=== PATIENT | male | born 1945 | race Two or more races ===

== ENCOUNTER 2021-07-12 10:57 | Outpatient (CLI) | payer OTHER | END 2021-07-12 23:59 | disposition home or self-care (01) | LOC: LAB 10:57 | PROVIDERS: ATTEND Physician Assistant | DX: Z01.812 Encounter for preprocedural laboratory examination (principal); Z20.822 Contact with and (suspected) exposure to COVID-19 | CPT/HCPCS: C9803; U0003 ==

== ENCOUNTER → 2021-07-19 | Outpatient (CLI) | payer OTHER ==
[~2021-07-19] MED LIST: BENA40TA8 PO; BUDE10.2 IH; CANA300T PO; FLUT16SP16; GABA-532 PO; GLIP10TA11 PO; LOVA40TA2 PO; METO-358 PO; MONT10TA22 PO; NIFE60TA73 PO; PANT40TA49 PO; SAXA5TAB PO; TERA2CAP4 PO; TRIA1TAB3 PO; TUDORZA PRESSAIR INH
== END | disposition home or self-care (01) ==
LOC: LAB 12:00
PROVIDERS: ATTEND Physician Assistant
DX: Z01.812 Encounter for preprocedural laboratory examination (principal); Z20.822 Contact with and (suspected) exposure to COVID-19
CPT/HCPCS: C9803; U0003

== ENCOUNTER 2021-07-24 05:14 | Inpatient (IN) | payer OTHER ==
[~2021-07-24] VITALS: Ht 170.2 cm; Wt 83.0 kg
[2021-07-24] MEDS ORDERED: POLYMYXIN B SULFATE 500,000 UNITS ONE (06:19)
[2021-07-24] MEDS ORDERED: BUPIVACAINE 0.25% 75 MG/30 ML VIAL ONE (06:20)
[2021-07-24] MEDS ORDERED: BUPIVACAINE MPF W/EPI 0.25% 30 ML VIAL ONE (06:20)
[2021-07-24] MEDS ORDERED: HYDROMORPHONE INJ 2 MG/ML DISP.SYRIN ONE (06:22)
[2021-07-24] MEDS ORDERED: ROCURONIUM BROMIDE 50 MG/5 ML ONE ×2 (06:22→07:21)
--- NOTE | 2021-07-24 06:35 | NUR ---
PT ARRIVED ON UNIT @ 0530. AOx4. ON RA AND TOLERATING WELL. NO SOB NOTED. NO S/SX OF RESPIRATORY DISTRESS NOTED. LEFT UNIT AT 0630 FOR PROCEDURE ON RIGHT SHOULDER.
[2021-07-24] MEDS ORDERED: TRANEXAMIC ACID 3,000 MG in SODIUM CHLORIDE IRRIG SOLUTION 70 ML IR ONE (07:00)
[2021-07-24] MEDS ORDERED: BUPIVACAINE 0.5 % PF 150 MG/30 ML VIAL ONE (08:14)
[2021-07-24] MEDS ORDERED: DOCUSATE SODIUM 250 MG CAPSULE PO PRN (09:30)
[2021-07-24] MEDS ORDERED: ZOLPIDEM TARTRATE 5 MG TABLET PO PRN (09:30)
[2021-07-24] MEDS ORDERED: SENNOSIDES 8.6 MG TABLET PO PRN (09:30)
[2021-07-24] MEDS ORDERED: HYDROCODONE/APAP 5/325MG TABLET PO PRN (09:30)
[2021-07-24] MEDS ORDERED: ONDANSETRON HCL/PF 4 MG/2 ML VIAL IVP PRN (09:30)
[2021-07-24] MEDS ORDERED: oxyCODONE IR immediate release 5 MG PO ONE (11:01)
[2021-07-24] MEDS ORDERED: MENTHOL/CETYLPYRD (CEPACOL) 1 LOZ LOZENGE PO ONE (11:13)
[2021-07-24] MEDS ORDERED: HYDROMORPHONE 1 MG/1 ML DISP.SYRIN IM/IV/SC PRN (11:30)
[2021-07-24] MEDS ORDERED: CLONIDINE HCL 0.1 MG TABLET PO PRN (11:30)
[2021-07-24] MEDS ORDERED: diphenhydrAMINE HCL 25 MG CAPSULE PO PRN (11:30)
[2021-07-24] MEDS ORDERED: oxyCODONE IR immediate release 5 MG PO PRN (11:30)
[2021-07-24] MEDS ORDERED: MENTHOL/CETYLPYRD (CEPACOL) 1 LOZ LOZENGE PO PRN (11:30)
[2021-07-24] MEDS ORDERED: MAG HYDROX/AL HYDROX/SIMETH 30 ML UDC PO PRN (11:30)
[2021-07-24 12:00] VITALS: BP 121/60
[2021-07-24] MEDS ORDERED: NIFE60TA73 PO (12:37)
[2021-07-24] MEDS ORDERED: CANA300T PO (12:37)
[2021-07-24] MEDS ORDERED: SAXA5TAB PO (12:37)
[2021-07-24] MEDS ORDERED: METO-358 PO (12:37)
[2021-07-24] MEDS ORDERED: FLUT16SP16 (12:37)
[2021-07-24] MEDS ORDERED: BENA40TA8 PO (12:37)
[2021-07-24] MEDS ORDERED: BUDE10.2 IH (12:37)
[2021-07-24] MEDS ORDERED: TUDORZA PRESSAIR INH (12:39)
[2021-07-24] MEDS ORDERED: MONT10TA22 PO (12:51)
[2021-07-24] MEDS ORDERED: GABA-532 PO (12:51)
[2021-07-24] MEDS ORDERED: LOVA40TA2 PO (12:51)
[2021-07-24] MEDS ORDERED: GLIP10TA11 PO (12:51)
[2021-07-24] MEDS ORDERED: PANT40TA49 PO (12:51)
[2021-07-24] MEDS ORDERED: TRIA1TAB3 PO (12:51)
[2021-07-24] MEDS ORDERED: TERA2CAP4 PO (12:51)
[2021-07-24] MEDS: GABAPENTIN 300 MG CAPSULE PO SCH ×2 (13:45→18:35)
[2021-07-24] MEDS: PANTOPRAZOLE 40 MG TABLET.DR PO SCH ×2 (13:45→21:19)
[2021-07-24] MEDS: oxyCODONE IR immediate release 5 MG PO PRN (16:06)
[2021-07-24] MEDS: ANCEF 1 GM/50 ML D5W IV SCH ×2 (16:14→23:35)
[2021-07-24 16:19] VITALS: BP 123/70
[2021-07-24] MEDS: glipiZIDE 10 MG TABLET PO SCH (18:29)
[2021-07-24] MEDS: DOCUSATE SODIUM 100 MG CAPSULE PO SCH (18:29)
[2021-07-24] MEDS: GABAPENTIN 100 MG CAPSULE PO SCH (18:29)
--- NOTE | 2021-07-24 19:15 | NUR ---
MS RN OPENING NOTES: RECEIVED PATIENT IN BED, AWAKE, EATING HIS DINNER. A/O X4. NO DISTRESS NOTED. CALL LIGHT WITHIN REACH. BED IN LOWEST AND LOCKED POSITION. WITH O2 AT 2L/MIN NASAL CANNULA. WITH RIGHT ARM SLING. WITH GOOD CMS ON THE RIGHT EXTREMITY. NO COMPLAIN OF PAIN.
--- NOTE | 2021-07-24 19:44 | NUR ---
RN NOTES RECEIVED PT FROM SURGERY , STABLE A/0 X 4 , ABLE TO MAKE NEEDS KNOWN, D/C FROM NPO AND DINNER ORDERED, ASSISTED IN CUTTING UP CHICKEN AND BROCCOLI HIS ARM WAS TOO WEAK TO DO SO, CALLED PHARMACY 3 DIFFERENT TIMES AT THIS TIME TO TRY TO GET THE ORDERS FOR PROCARDIA/NIFEDIPINE , FLUCOTISONE, AND CEPROCEL TO UNIT SO I CAN PROVIDE BEFORE ENDING SHIFT PHARM SAID THEY WOULD SEND THOSE RIGHT UP , I AM AWAITING, PT REPOSITIONED FOR COMFORT, VOIDED 3 X'S DURING SHIFT CLEAR YELLOW NORMAL NO FOUL ODOR, IV INTACT PATENT, CALL LIGHT IN REACH WHEELS LOCKED ON BED AND BED LOW TO FLOOR, WILL CONTINUE TO MONITOR.
[2021-07-24 20:00] VITALS: BP 120/60
[2021-07-24] MEDS: TERAZOSIN HCL 1 MG CAPSULE PO SCH (20:14)
[2021-07-24] MEDS: FLUTICASONE PROPIONATE 16 GM BOTTLE NS SCH (20:14)
[2021-07-24] MEDS: MONTELUKAST SODIUM (10MG) 10 MG TABLET PO SCH (21:19)
[2021-07-24] MEDS: NIFEdipine XL (30MG) 30 MG TAB PO SCH (21:20)
[2021-07-24] MEDS: IV D5/0.45 NACL 1,000 ML IV PRN (21:22)
[2021-07-24] MEDS: LORAZEPAM 1 MG TABLET PO PRN (23:46)
[2021-07-25] MEDS: IV D5/0.45 NACL 1,000 ML IV PRN (05:44)
--- NOTE | 2021-07-25 06:27 | NUR ---
TOLD RT TO INSTRUCT IS FOR THE PATIENT.
[2021-07-25] MEDS ORDERED: PANTOPRAZOLE 40 MG TABLET.DR PO SCH (07:30)
--- NOTE | 2021-07-25 07:30 | NUR ---
MS RN OPENING NOTES RECEIVED PATIENT IN BED, AWAKE, A&O X 4. WITH O2 VIA NC AT 2LPM TOLERATING WELL, NO S/SX OF ACUTE DISTRESS NOTED. NO COMPLAINTS OF PAIN AT THIS TIME. IV ACESS ON LEFT WRIST G#20 PATENT AND FLUSHES WELL. SAFETY PRECAUTIONS IN PLACE: BED ON LOWEST LOCKED POSITION, SIDE RAILS UP X 2, KEPT CALL LIGHT WITHIN EASY REACH. WILL CONTINUE TO MONITOR PATIENT ACCORDINGLY.
[2021-07-25] MEDS: glipiZIDE 10 MG TABLET PO SCH ×2 (08:20→16:03)
[2021-07-25] MEDS: ASPIRIN 325 MG TABLET PO SCH (08:20)
[2021-07-25] MEDS: DOCUSATE SODIUM 100 MG CAPSULE PO SCH ×2 (08:20→16:03)
[2021-07-25] MEDS: ATORVASTATIN 10 MG TABLET PO SCH (08:20)
[2021-07-25] MEDS: BENAZEPRIL HCL 20 MG TABLET PO SCH (08:21)
[2021-07-25] MEDS: GABAPENTIN 100 MG CAPSULE PO SCH ×3 (08:21→16:03)
[2021-07-25] MEDS: METOPROLOL SUCCINATE 50 MG TAB.SR.24H PO SCH (08:22)
[2021-07-25] MEDS: GABAPENTIN 300 MG CAPSULE PO SCH ×2 (08:28→12:18)
[2021-07-25 08:36] VITALS: BP 112/56
[2021-07-25] MEDS ORDERED: Medication Not On Formulary EA (Canagliflozin (Invokana) 300 MG) PO SCH (09:00)
[2021-07-25] MEDS ORDERED: MAXZIDE TABLET 1 UDTAB TABLET PO SCH (09:00)
[2021-07-25] MEDS: oxyCODONE IR immediate release 5 MG PO PRN (09:32)
[2021-07-25] MEDS: FLUTICASONE PROPIONATE 16 GM BOTTLE NS SCH (09:33)
--- NOTE | 2021-07-25 12:18 | NUR ---
RN NOTES GABAPENTIN DUPLICATE ORDER.
[2021-07-25] MEDS: FLUTICASONE/VILANTEROL 1 EACH BLST.W.DEV IH SCH (15:07)
--- NOTE | 2021-07-25 15:39 | NUR ---
RN NOTES INFORMED DR. FOURNIER REGARDING ORTHO CLEARANCE FOR D/C.
[2021-07-25 16:20] VITALS: BP 116/65
[2021-07-25] MEDS: NIFEdipine XL (30MG) 30 MG TAB PO SCH (17:37)
--- NOTE | 2021-07-25 18:44 | NUR ---
MS RN CLOSING NOTES PATIENT IN BED, AWAKE, A&O X 4. ON ROOM AIR TOLERATING WELL, NO S/SX OF ACUTE DISTRESS NOTED. NO COMPLAINTS OF PAIN AT THIS TIME. IV ACCESS ON LEFT WRIST G#20 PATENT AND FLUSHES WELL. SAFETY PRECAUTIONS IN PLACE: BED ON LOWEST LOCKED POSITION, SIDE RAILS UP X 2, KEPT CALL LIGHT WITHIN EASY REACH. FOR DISCHARGE AWAITING UPDATE FROM [employer] FOR TRANSPORTATION [employer]. ALL NEEDS ATTENDED AND MET. WILL ENDORSE TO ONCOMING SHIFT FOR TACO.
--- NOTE | 2021-07-25 19:15 | NUR ---
MS RN OPENING NOTES: RECEIVED PATIENT IN BED AWAKE, A/O X4. NO S/S OF DISTRESS NOTED. NO C/O OF PAIN. BED IN LOWEST AND LOCKED POSITION. BED ALARM ON. CALL LIGHT WITHIN REACH. WITH RIGHT ARM SLING.
[2021-07-25 20:00] VITALS: BP 138/64
[2021-07-25] MEDS: ACETAMINOPHEN 325 MG TABLET PO PRN (21:19)
[2021-07-25] MEDS: PANTOPRAZOLE 40 MG TABLET.DR PO SCH (21:19)
[2021-07-25] MEDS: TERAZOSIN HCL 1 MG CAPSULE PO SCH (21:19)
[2021-07-25] MEDS: MONTELUKAST SODIUM (10MG) 10 MG TABLET PO SCH (21:19)
[2021-07-25] MEDS: LORAZEPAM 1 MG TABLET PO PRN (23:27)
[2021-07-26 08:00] VITALS: BP 124/56
[2021-07-26] MEDS: FLUTICASONE/VILANTEROL 1 EACH BLST.W.DEV IH SCH (08:28)
[2021-07-26] MEDS: IPRATROPIUM NEB FS 0.5 MG/2.5 ML AMPUL.NEB NEB SCH ×3 (08:28→19:53)
[2021-07-26] MEDS: FLUTICASONE PROPIONATE 16 GM BOTTLE NS SCH (08:28)
[2021-07-26] MEDS: ATORVASTATIN 10 MG TABLET PO SCH (08:29)
[2021-07-26] MEDS: glipiZIDE 10 MG TABLET PO SCH ×2 (08:29→16:29)
[2021-07-26] MEDS: GABAPENTIN 100 MG CAPSULE PO SCH ×3 (08:29→16:29)
[2021-07-26] MEDS: DOCUSATE SODIUM 100 MG CAPSULE PO SCH ×2 (08:29→16:28)
[2021-07-26] MEDS: LINAGLIPTIN 5 MG TABLET PO SCH (08:29)
[2021-07-26] MEDS: ASPIRIN 325 MG TABLET PO SCH (08:29)
[2021-07-26] MEDS: BENAZEPRIL HCL 20 MG TABLET PO SCH (08:35)
[2021-07-26] MEDS: METOPROLOL SUCCINATE 50 MG TAB.SR.24H PO SCH (08:35)
[2021-07-26] MEDS: TRIAMTERENE/HYDROCHLOROTHIAZID (37.5/25MG) 1 UDCAP PO SCH (08:36)
[2021-07-26] MEDS: oxyCODONE IR immediate release 5 MG PO PRN (09:38)
[2021-07-26] MEDS ORDERED: BISACODYL SUPP (10 MG) 10 MG/SUPP.RECT SUPP.RECT RC ONE (10:26)
[2021-07-26 16:00] VITALS: BP 127/58
[2021-07-26] MEDS: NIFEdipine XL (30MG) 30 MG TAB PO SCH (18:05)
--- NOTE | 2021-07-26 18:47 | NUR ---
MS RN CLOSING NOTE PATIENT CURRENTLY LYING IN BED, AWAKE, A&O X4. WAS SUPPOSED TO DC TODAY BUT NO PLACEMENT AVAILABLE. STABLE ON ROOM AIR - NO SOB NOTED, NO DISTRESS/DISCOMFORT NOTED. IV ACCESS TO LEFT WRIST #20 - PATENT AND INTACT. SLING NOTED ON RIGHT SHOULDER. NO PAIN NOTED. SAFETY PRECAUTIONS IN PLACE. CALL LIGHT WITHIN REACH. WILL ENDORSE TO [employer]OR WINDER NURSE FOR TACO.
--- NOTE | 2021-07-26 19:25 | NUR ---
MS RN OPENING NOTES: RECEIVED PATIENT IN BED, AWAKE, A/O X4. NO S/S OF DISTRESS NOTED. CALL LIGHT WITHIN REACH. BED ALARM ON. BED IN LOWEST AND LOCKED POSITION. NO COMPLAIN OF PAIN AT THIS TIME. WITH RIGHT ARM SLING, WITH GOOD CMS ON THE RIGHT EXTREMITY NOTED.
[2021-07-26 20:00] VITALS: BP 131/57
[2021-07-26] MEDS: MONTELUKAST SODIUM (10MG) 10 MG TABLET PO SCH (21:43)
[2021-07-26] MEDS: PANTOPRAZOLE 40 MG TABLET.DR PO SCH (21:43)
[2021-07-26] MEDS: TERAZOSIN HCL 1 MG CAPSULE PO SCH (21:44)
[2021-07-26] MEDS: ACETAMINOPHEN 325 MG TABLET PO PRN (21:44)
[2021-07-27] MEDS: IPRATROPIUM NEB FS 0.5 MG/2.5 ML AMPUL.NEB NEB SCH ×4 (01:00→20:27)
[2021-07-27] MEDS: LORAZEPAM 1 MG TABLET PO PRN (01:43)
[2021-07-27] MEDS: BISACODYL SUPP (10 MG) 10 MG/SUPP.RECT SUPP.RECT RC PRN (06:40)
[2021-07-27 08:00] VITALS: BP 109/57
--- NOTE | 2021-07-27 08:00 | NUR ---
MS RN OPENING NOTE RECEIVED PATIENT AWAKE IN BED. ALERT AND ORIENTED X 4. NO S/S OF DISTRESS NOTED. BREATHING IS EVEN AND UNLABORED. PT NOTED WITH RIGHT ARM SLING. IV ACCESS LWRIST#20 SL. SAFETY MEASURES MAINTAINED WITH BED LOCKED AT LOW POSITION AND SIDE RAILS UP X2. CALL LIGHT IS WITHIN REACH . WILL CONTINUE TO MONITOR THROUGHOUT SHIFT.
[2021-07-27] MEDS: LINAGLIPTIN 5 MG TABLET PO SCH (08:56)
[2021-07-27] MEDS: GABAPENTIN 100 MG CAPSULE PO SCH ×3 (08:56→17:28)
[2021-07-27] MEDS: ATORVASTATIN 10 MG TABLET PO SCH (08:56)
[2021-07-27] MEDS: ASPIRIN 325 MG TABLET PO SCH (08:56)
[2021-07-27] MEDS: DOCUSATE SODIUM 100 MG CAPSULE PO SCH ×2 (08:56→17:28)
[2021-07-27] MEDS: glipiZIDE 10 MG TABLET PO SCH ×2 (08:56→17:28)
[2021-07-27] MEDS: BENAZEPRIL HCL 20 MG TABLET PO SCH ×2 (08:57→09:05)
[2021-07-27] MEDS: TRIAMTERENE/HYDROCHLOROTHIAZID (37.5/25MG) 1 UDCAP PO SCH (08:57)
[2021-07-27] MEDS: FLUTICASONE/VILANTEROL 1 EACH BLST.W.DEV IH SCH (09:00)
[2021-07-27] MEDS: FLUTICASONE PROPIONATE 16 GM BOTTLE NS SCH (09:00)
[2021-07-27] MEDS: METOPROLOL SUCCINATE 50 MG TAB.SR.24H PO SCH (09:06)
[2021-07-27 16:00] VITALS: BP 117/57
[2021-07-27] MEDS: NIFEdipine XL (30MG) 30 MG TAB PO SCH (17:30)
--- NOTE | 2021-07-27 19:07 | NUR ---
MS RN CLOSING NOTE PATIENT IS RESTING BED, COMFORTABLY. NO S/S OF DISTRESS NOTED. BREATHING IS EVEN AND UNLABORED. ALL NEEDS MET THROUGHOUT SHIFT. SAFETY MEASURES MAINTAINED WITH BED LOCKED AT LOW POSITION AND SIDE RAILS UP X2. CALL LIGHT IS WITHIN REACH. WILL ENDORSE CONTINUITY OF CARE TO ONCOMING SHIFT.
--- NOTE | 2021-07-27 19:10 | NUR ---
Patient A&Ox4. No signs of distress. Pt. does report that his pain 05/13 however, will medicate with PRN oxy shortly. R arm in sling and elevated on pillow for positional support. IV LFA flushed and patent. Will continue to monitor.
[2021-07-27] MEDS: oxyCODONE IR immediate release 5 MG PO PRN (19:34)
[2021-07-27 20:00] VITALS: BP 127/66
[2021-07-27] MEDS: MONTELUKAST SODIUM (10MG) 10 MG TABLET PO SCH (22:07)
[2021-07-27] MEDS: PANTOPRAZOLE 40 MG TABLET.DR PO SCH (22:07)
[2021-07-27] MEDS: TERAZOSIN HCL 1 MG CAPSULE PO SCH (22:08)
[2021-07-28] MEDS: IPRATROPIUM NEB FS 0.5 MG/2.5 ML AMPUL.NEB NEB SCH ×2 (01:31→07:35)
[2021-07-28] MEDS: LORAZEPAM 1 MG TABLET PO PRN (01:54)
[2021-07-28] MEDS: BISACODYL SUPP (10 MG) 10 MG/SUPP.RECT SUPP.RECT RC PRN (06:11)
--- NOTE | 2021-07-28 06:23 | NUR ---
Patient has been stable throughout night and slept well after PRN ativan given. Patient still hasn't had a BM -senna ineffective. gave Dulcolax suppository. will endorse to next shift if no BM. Currently on BSC.
--- NOTE | 2021-07-28 07:30 | NUR ---
MS RN OPENING NOTES RECEIVED PT ON BED, AWAKE AND A/O X4. ON ROOM AIR TOLERATING WELL. NO SOB NOTED. NOT IN DISTRESS. WITH NO COMPLAINTS OF PAIN OR DISCOMFORT NOTED. WITH IV ACCESS AT LEFT WRIST G20, SALINE LOCKED, INTACT AND PATENT. SAFETY MEASURES IN PLACED. CALL LIGHT WITHIN REACH. BED ON LOWEST AND LOCKED POSITION WITH SIDE RAILS UP X2. WILL CONTINUE TO MONITOR.
[2021-07-28 08:29] VITALS: BP 110/50
[2021-07-28] MEDS: FLUTICASONE/VILANTEROL 1 EACH BLST.W.DEV IH SCH (09:32)
[2021-07-28] MEDS: FLUTICASONE PROPIONATE 16 GM BOTTLE NS SCH (09:32)
[2021-07-28] MEDS: DOCUSATE SODIUM 100 MG CAPSULE PO SCH (09:33)
[2021-07-28] MEDS: ASPIRIN 325 MG TABLET PO SCH (09:33)
[2021-07-28] MEDS: GABAPENTIN 100 MG CAPSULE PO SCH ×2 (09:33→12:58)
[2021-07-28] MEDS: TRIAMTERENE/HYDROCHLOROTHIAZID (37.5/25MG) 1 UDCAP PO SCH (09:35)
[2021-07-28] MEDS: ATORVASTATIN 10 MG TABLET PO SCH (09:35)
[2021-07-28] MEDS: METOPROLOL SUCCINATE 50 MG TAB.SR.24H PO SCH (09:36)
[2021-07-28] MEDS: LINAGLIPTIN 5 MG TABLET PO SCH (09:36)
[2021-07-28] MEDS: glipiZIDE 10 MG TABLET PO SCH (09:37)
[2021-07-28 09:43] VITALS: BP 110/50
[2021-07-28] MEDS: BENAZEPRIL HCL 20 MG TABLET PO SCH (09:43)
--- NOTE | 2021-07-28 13:35 | NUR ---
MS BLOCK SORTER NOTES FOR DISCHARGE TO HOME PER DOCTOR'S ORDER. DISCHARGE INSTRUCTION AND EDUCATION PROVIDED TO PATIENT AND EXPLAINED MEDICATIONS AND PRESCRIPTIONS. PATIENT VERBALIZED UNDERSTANDING. DISCHARGE FORM AND BELONGINGS LIST FORM SIGNED BY PATIENT. ALL BELONGINGS ACCOUNTED FOR. NAME WRIST BAND AND IV LINE REMOVED. PATIENT WAS ACCOMPANIED TO THE LOBBY VIA WHEELCHAIR. PATIENT WAS PICKED UP VIA GRAB. CHARGE NURSE AND MD ARE AWARE OF THE DISCHARGE.
== END 2021-07-28 13:35 | disposition home health service (06) | DRG 483 ==
LOC: DS 05:14 → MED 05:15
PROVIDERS: ADMIT Internal Medicine; ATTEND Internal Medicine
PROC: 0RRJ00Z Replacement of Right Shoulder Joint with Reverse Ball and Socket Synthetic Substitute, Open Approach (ICD-10-PCS; principal; 2021-07-24)
PROC: 0LS30ZZ Reposition Right Upper Arm Tendon, Open Approach (ICD-10-PCS; 2021-07-24)
DX: M75.101 Unspecified rotator cuff tear or rupture of right shoulder, not specified as traumatic (principal); I10 Essential (primary) hypertension; E78.5 Hyperlipidemia, unspecified; N40.0 Benign prostatic hyperplasia without lower urinary tract symptoms; Z20.822 Contact with and (suspected) exposure to COVID-19; E03.9 Hypothyroidism, unspecified; M75.21 Bicipital tendinitis, right shoulder; J45.909 Unspecified asthma, uncomplicated; K21.9 Gastro-esophageal reflux disease without esophagitis; M19.90 Unspecified osteoarthritis, unspecified site; Y99.0 Civilian activity done for income or pay; Z79.899 Other long term (current) drug therapy; Z87.891 Personal history of nicotine dependence; E11.42 Type 2 diabetes mellitus with diabetic polyneuropathy; G47.00 Insomnia, unspecified; X58.XXXA Exposure to other specified factors, initial encounter
CPT/HCPCS: 87081-TC; 88305-TC; 88311-TC; 94799-TC; 97535-TC; A4217; A4565; C1776; G0378; J0690; J1100; J1170; J1885; J2405; J2704; J3490; J7030; J7060